=== PATIENT | male | born 2000 | race Asian ===

== ENCOUNTER 2021-12-12 11:14 | Emergency (ER) | payer OTHER, SELFPAY ==
[2021-12-12 11:30] VITALS: BP 112/78; PULSE 110; RESP 18; TEMP 37.9; O2SAT 100
--- NOTE | 2021-12-12 12:03 | ED.GENADULT ---
HPI - General Adult General Chief complaint: Unspecified Stated complaint: sore throat, fatigue Time Seen by Provider: 12/12/21 11:16 History of Present Illness HPI narrative: 21-year-old male presents the emergency room for evaluation of a sore throat and body aches and fever. Patient states he has had symptoms for a couple of days. Reports difficulty swallowing. Related Data Allergies Allergy/AdvReac Type Severity Reaction Status Date / Time No Known Allergies Allergy Verified 12/12/21 12:45 Review of Systems Review of Systems: CONSTITUTIONAL: Denies fever, chills, or sweats. EYES: Denies visual changes, redness, or discharge. ENT: Reports sore throat CARDIOVASCULAR: Denies chest pain, palpitations, or edema. RESPIRATORY: Denies cough or dyspnea. GASTROINTESTINAL: Denies abdominal pain, nausea, vomiting, or diarrhea. GENITOURINARY: Denies dysuria or hematuria. SKIN: Denies rash or itching. MUSCULOSKELETAL: Denies back pain, joint pain, or myalgia. NEUROLOGIC: Denies headache, numbness, dizziness, or weakness. PSYCHIATRIC: Denies anxiety or depression. Exam Narrative: GENERAL: Well-appearing, well-nourished, no physical limitations, and in no acute distress. HEAD: Normocephalic, atraumatic. EYES: Conjunctivae normal, PERRLA and EOMI. ENT: External nose normal, Nares clear, no rhinorrhea or epistaxis. Mucous membranes moist. erythematous tonsils with exudate External ears normal, bilateral TMs normal bilaterally NECK: Supple. No meningeal signs. Cervical lymphadenopathy. CHEST: Clear to auscultation. No respiratory distress. No wheezes rales or rhonchi. No tenderness. HEART: Regular rate and rhythm. No murmur heard. Normal peripheral pulses. EXTREMITIES: Normal range of motion. No edema. No clubbing or cyanosis SKIN: Warm, dry, no rash. No noted wounds NEURO: No focal deficits. Alert and oriented x3. MAEW. CN's II-XI intact bilaterally, normal gait PSYCH: Cooperative. Normal mood and affect. Course Vital Signs Vital signs: Vital Signs Temperature 37.9 C H 12/12/21 11:30 Pulse Rate 110 H 12/12/21 11:30 Respiratory Rate 18 12/12/21 11:30 Blood Pressure 112/78 12/12/21 11:30 Pulse Oximetry 100 12/12/21 11:30 Oxygen Delivery Room Air 12/12/21 11:30 Temperature 37.9 C H 12/12/21 11:30 Pulse Rate 110 H 12/12/21 11:30 Respiratory Rate 18 12/12/21 11:30 Blood Pressure 112/78 12/12/21 11:30 Pulse Oximetry 100 12/12/21 11:30 Oxygen Delivery Room Air 12/12/21 11:30 Medical Decision Making Vital Signs Vital Signs: Vital Signs Temperature 37.9 C H 12/12/21 11:30 Pulse Rate 110 H 12/12/21 11:30 Respiratory Rate 18 12/12/21 11:30 Blood Pressure 112/78 12/12/21 11:30 Pulse Oximetry 100 12/12/21 11:30 Oxygen Delivery Room Air 12/12/21 11:30 Temperature 37.9 C H 12/12/21 11:30 Pulse Rate 110 H 12/12/21 11:30 Respiratory Rate 18 12/12/21 11:30 Blood Pressure 112/78 12/12/21 11:30 Pulse Oximetry 100 12/12/21 11:30 Oxygen Delivery Room Air 12/12/21 11:30 Lab Data Labs: Lab Results 12/12/21 Range/Units 12:06 Monoscreen Pending Strep Screen Positive Group A Strep *(Reference Range: Negative)* Strep Screen Positive Group A Strep *(Reference Range: Negative)* Discharge Plan Discharge Clinical Impression: Strep pharyngitis Patient Disposition: Home, Self-Care Condition: Stable Instructions: Antibiotic Form, Strep Throat (ED) Additional Instructions: Tylenol and ibuprofen as needed for fevers and body aches. Make sure you are drinking plenty of fluid. Antibiotics will start to work in 24 to 48 hours. Prescriptions: New amoxicillin 500 mg capsule 500 mg PO Q8H 7 Days Qty: 21 0RF Follow-up/Referrals: PHYSICIAN,CLIMATE CHANGE ANALYST [Primary Care Provider] - Gray Espino MD [Physician] - Time of Disp
[2021-12-12] MEDS: ACETAMINOPHEN 500 MG TABLET 1000 MG PO (12:46)
[2021-12-12 13:04] LABS: Monoscreen Negative (Negative); Negative Monotest Control Negative (Negative); Positive Monotest Control Positive (Positive)
== END 2021-12-12 12:58 | disposition home or self-care (01) ==
PROVIDERS: Emergency Provider Nurse Practitioner Family
DX: J02.0 Streptococcal pharyngitis (principal)
CPT/HCPCS: 36415; 86308; 87880; 99283; A9270; J1100

== ENCOUNTER 2022-04-15 12:08 | Emergency (ER) | payer SELFPAY ==
[2022-04-15 12:11] VITALS: BP 108/66; PULSE 94; RESP 18; TEMP 37.9; O2SAT 95
[2022-04-15 13:04] LABS: Influenza A QL RT-PCR Positive (Negative); Influenza B QL RT-PCR Negative (Negative); RSV RNA, RT-PCR Negative (Negative); SARS-CoV-2 RNA PCR Negative
--- NOTE | 2022-04-15 13:06 | ED.GENADULT ---
HPI - General Adult General Chief complaint: Upper Respiratory Infection Stated complaint: myalgias Time Seen by Provider: 04/15/22 12:52 History of Present Illness HPI narrative: 21-year-old male presenting to the emergency department for evaluation of fevers chills body aches and nasal congestion that started last night. Patient denies any known sick contacts. Patient is not vaccinated against flu but did receive the COVID-vaccine. Patient denies any other sniffing and past medical history. Patient states he has been treating his fever at home. Related Data Allergies Allergy/AdvReac Type Severity Reaction Status Date / Time No Known Allergies Allergy Verified 04/15/22 12:54 Review of Systems Review of Systems: CONSTITUTIONAL: Denies fever, chills, or sweats. EYES: Denies visual changes, redness, or discharge. ENT: Denies rhinorrhea, congestion, sore throat, or otalgia. CARDIOVASCULAR: Denies chest pain, palpitations, or edema. RESPIRATORY: See HPI GASTROINTESTINAL: Denies abdominal pain, nausea, vomiting, or diarrhea. GENITOURINARY: Denies dysuria or hematuria. SKIN: Denies rash or itching. MUSCULOSKELETAL: Denies back pain, joint pain, or myalgia. NEUROLOGIC: Denies headache, numbness, or weakness. Exam Narrative: APPEARANCE: Well appearing, no pain, no distress, well-nourished. HEAD: normocephalic, atraumatic. EYES: PERRLA/EOMI, conjunctivae clear. NOSE: Normal no drainage EARS: Fluid behind the left TM, minimal erythema THROAT: Pharynx clear, no exudate. NECK: Supple. No adenopathy, no masses. RESPIRATORY: Airway patent, respirations nonlabored. Clear to auscultation bilaterally, no rales, rhonchi, wheezing. CARDIOVASCULAR: Regular rate and rhythm without murmurs rubs or gallops. ABDOMINAL: Soft, nontender, nondistended, normal bowel sounds MUSCULOSKELETAL: Moves all extremities. Strength/ROM intact, No edema, No calf tenderness. NEURO: Alert. Cranial nerves II through XII intact. Grossly intact SKIN: Warm, dry. Normal Color Course Course Emergency Course: Patient did test positive for influenza A. Patient was treated for his low-grade fever. Patient was updated on the results of the work-up and plan for symptomatic treatment at home. All questions concerns were addressed.. Vital Signs Vital signs: Vital Signs Temperature 100.2 F H 04/15/22 12:11 Pulse Rate 94 04/15/22 12:11 Respiratory Rate 18 04/15/22 12:11 Blood Pressure 108/66 04/15/22 12:11 Pulse Oximetry 95 04/15/22 12:11 Oxygen Delivery Room Air 04/15/22 12:11 Temperature 100.2 F H 04/15/22 12:11 Pulse Rate 94 04/15/22 12:11 Respiratory Rate 18 04/15/22 12:11 Blood Pressure 108/66 04/15/22 12:11 Pulse Oximetry 95 04/15/22 12:11 Oxygen Delivery Room Air 04/15/22 12:11 Medical Decision Making Vital Signs Vital Signs: Vital Signs Temperature 100.2 F H 04/15/22 12:11 Pulse Rate 94 04/15/22 12:11 Respiratory Rate 18 04/15/22 12:11 Blood Pressure 108/66 04/15/22 12:11 Pulse Oximetry 95 04/15/22 12:11 Oxygen Delivery Room Air 04/15/22 12:11 Temperature 100.2 F H 04/15/22 12:11 Pulse Rate 94 04/15/22 12:11 Respiratory Rate 18 04/15/22 12:11 Blood Pressure 108/66 04/15/22 12:11 Pulse Oximetry 95 04/15/22 12:11 Oxygen Delivery Room Air 04/15/22 12:11 Lab Data Lab results reviewed: Yes I reviewed the patient's lab results. Labs: Lab Results 04/15/22 Range/Units 12:14 Influenza A (RT-PCR) Positive (Negative) Influenza B (RT-PCR) Negative (Negative) RSV (RT-PCR) Negative (Negative) SARS-CoV-2 RNA (RT-PCR) Negative Discharge Plan Discharge Clinical Impression: Influenza A Patient Disposition: Home, Self-Care Condition: Stable Instructions: Antibiotic Form, Influenza (ED) Additional Instructions: Tylenol and ibuprofen for fever and for body aches. Drink plenty of fluids. Have close follow-up with your primary care
[2022-04-15] MEDS: IBUPROFEN 400 MG TABLET 800 MG PO (13:10)
== END 2022-04-15 13:25 | disposition home or self-care (01) ==
PROVIDERS: Emergency Provider Emergency Medicine
DX: J10.1 Influenza due to other identified influenza virus with other respiratory manifestations (principal); Z20.822 Contact with and (suspected) exposure to COVID-19
CPT/HCPCS: 87637; 99283; A9270